=== PATIENT | female | born 1980 | race Hispanic/Latino ===

== ENCOUNTER 2024-12-17 01:45 | Emergency (ER) | payer SELFPAY ==
--- NOTE | ~2024-12-17 | XR_ITS ---
Right ankle Technique: AP, oblique, and lateral views were obtained. Clinical History: Pain Findings: There is an acute, transverse, nondisplaced fracture the distal tip of the lateral malleolu s. No other fracture or dislocation seen. Suture anchors of the distal fibular noted.. Ankle mortise and other visualized joint spaces are preserved. There is mild lateral soft tissue swelling. Impression: Acute, transverse fracture of the distal tip of the lateral malleolus, as detailed above. Reviewed, dictated and finalized at location M. FINISHER Impression: Acute, transverse fracture of the distal tip of the lateral malleolus, as pk led above.
--- NOTE | ~2024-12-17 | XR_ITS ---
Right foot Technique: AP, oblique, and lateral views were obtained. Clinical History: Pain Findings: No acute fracture or dislocation is seen. Osseous alignment is anatomic. Joint spaces are p reserved without erosive or degenerative change. Soft tissues are unremarkable. Impression: Unremarkable right foot radiographs. Reviewed, dictated and finalized at location . TICAL ORGANIZER Impression: Unremarkable right foot radiographs.
[2024-12-17 01:55] VITALS: BP 147/101; PULSE 79; RESP 20; TEMP 36.4; O2SAT 96
--- NOTE | 2024-12-17 02:14 | ED_ITS ---
HPI - Extremity Injury (Lower) General Chief Complaint: Extremity Injury, Lower Stated Complaint: right ankle pain Time Seen by Provider: 12/17/24 02:14 Source: patient Mode of arrival: ambulatory Limitations: no limitations History of Present Illness HPI Narrative: This is a 44 year old female with history of right ankle reconstructive surgery after ligamentous tear who presents to the emergency department complaining severe right ankle pain after a fall. The patient states she wants walking down steps when she misstepped, causing the right ankle to forcefully invert. She complains of severe dull right lateral ankle and foot pain. She denies pain elsewhere or other injury. She has no other complaints at this time. Related Data Allergies Allergy/AdvReac Type Severity Reaction Status Date / Time No Known Allergies Allergy Verified 12/17/24 02:24 Review of Systems Review of Systems: last menstrual period 2006 All systems reviewed & are unremarkable except as noted in HPI and below PMFSH Surgical History Surgical History History of cholecystectomy History of endometrial ablation History of ankle surgery right ankle reconstruction Social History Social History Smoking status: Never smoker Alcohol intake: never Substance use: never Exam Narrative: GENERAL: Well-developed, well-nourished, and in no acute distress. HEAD: Normocephalic, atraumatic. EYES: PERRLA and EOMI. CHEST: Clear to auscultation. No respiratory distress. No wheezes rales or rhonchi HEART: Regular rate and rhythm. No murmur heard. Normal peripheral pulses. EXTREMITIES: The lateral aspect the distal right ankle is swollen without obvious ecchymosis. There is tenderness to palpation at the lateral malleolus and over the right 5th metatarsal. Range of motion of the right ankle limited b y pain. Normal range of motion of all other extremities. No edema. SKIN: Warm, dry, no rash. NEURO: Alert and oriented x3. No focal deficit. Moving all 4 limbs spontaneously PSYCH: Normal mood and affect. Course Course Emergency Course: 02:20 - x-ray demonstrates a minimally displaced fracture of the distal right lateral malleolus, consistent with an avulsion injury. There are post operative changes consistent with prior ankle surgery. Joint spaces appear preserved. X- ray of the ankle not concerning for other fracture, dislocation or separation. X-ray of the foot not concerning for metatarsal fracture, dislocation or separation. Will place the patient in a splint or postsurgical boot if available and discharge with recommendation for orthopedic surgery follow-up. I discussed the findings and recommendations with The patient. Discussed return and emergency precautions including signs/symptoms of septic arthritis and neurovascular compromise. The patient voiced understanding and agreement with the plan. All questions answered to her satisfaction. MDM - Extremity Injury (Lower) MDM Narrative Medical decision making narrative: plan: Pain control, imaging, reassess Differential Diagnosis Differential diagnosis: Likely ankle sprain and strain, fracture of toe, ankle fracture and other Discharge Plan Discharge Clinical Impression: Acute right ankle pain Lateral malleolar fracture Qualifiers: Encounter type: initial encounter Fracture type: closed Fracture alignment: displaced Laterality: right Qualified Code(s): S82.61XA - Displaced fracture of lateral malleolus of right fibula, initial encounter for closed fracture Patient Disposition: Home, Self-Care Condition: Stable Instructions: Antibiotic Form, Ankle Fracture (ED) Additional Instructions: You were seen in the emergency department. your x-rays showed changes consistent with a minimally displaced right lateral malleolus fracture. I recommend splinting, pain medications and follow-up with an orthopedic surgeon or division controller. I recommend rest, icing and elevation. If you develop Fevers with rapidly spreading redness and increasing pain, foot/ ankle appears blue/cold, or if you have other emergent concerns for life, limb, or eyesight, return to the emergency department. Patient Language: [place] Follow-up/Referrals: Eric Cifuentes MD [Physician] - 2 Weeks UNKNOWN,DOCTOR [Primary Care Provider] - Time of Disposition: 02:51
[2024-12-17] MEDS: oxyCODONE/ACETAMINOPHEN (*CRX) 5-325 MG TABLET 1 TABLET PO (02:52)
[2024-12-17 03:53] VITALS: BP 132/80; PULSE 66; RESP 18; TEMP 36.5; O2SAT 97
== END 2024-12-17 03:55 | disposition home or self-care (01) ==
PROVIDERS: Emergency Provider Preventive Medicine Aerospace Medicine
DX: S82.61XA Displaced fracture of lateral malleolus of right fibula, initial encounter for closed fracture (principal); W10.9XXA Fall (on) (from) unspecified stairs and steps, initial encounter
CPT/HCPCS: 73610; 73630; 99284; A9270; L4350